=== PATIENT | female | born 1990 | race African-American/Black ===

== ENCOUNTER 2020-05-12 10:05 | Emergency (ER) | payer OTHER, SELFPAY ==
[2020-05-12 10:18] VITALS: BP 112/32; PULSE 72; RESP 18; TEMP 37.4; O2SAT 100; BMI 33.6
--- NOTE | 2020-05-12 10:19 | XR_ITS ---
EXAMINATION: XR ANKLE, RIGHT CLINICAL INFORMATION: Status post near fall. Twisting injury. Pain. COMPARISON: None TECHNIQUE: AP, lateral, and mortise views of the right ankle. FINDINGS: The bones and soft tissues are normal. No fracture. Alignment is anatomic. Joint spaces are maintained. No joint effusion. XR/XR ankle RT min 3V IMPRESSION: Unremarkable right ankle exam.
--- NOTE | 2020-05-12 11:12 | ED_ITS ---
HPI - Extremity Injury (Lower) General Chief Complaint: Extremity Injury, Lower Stated Complaint: foot pain Time Seen by Provider: 05/12/20 10:19 Source: patient Mode of arrival: ambulatory Limitations: no limitations History of Present Illness HPI Narrative: States getting out of her vehicle at work today just prior to arrival and misstepped and rolled or any ankle having right ankle pain/swelling since. Denies fall or any other injury. Again injury occurred today 05/12/2020 just prior to arrival. MD complaint: ankle injury Onset (ago): hour(s) Related Data Allergies Allergy/AdvReac Type Severity Reaction Status Date / Time No Known Allergies Allergy Verified 05/12/20 10:24 Review of Systems Review of Systems: Constitutional: No Weight loss, No Fever, No Chills, No Night Sweats, No Fatigue, No Malaise ENT/Mouth: No Hearing loss, No Ear Pain, No Nasal Congestion, No Sinus Pain, No Hoarseness, No sore throat, No Rhinorrhea, No Swallowing Difficulty Eyes: No Eye Pain, No Swelling, No Redness, No Foreign Body, No Discharge, No Vision Changes Cardiovascular: No Chest Pain, No SOB, No Dyspnea on Exertion, No Orthopnea, No Edema, No Palpitations Respiratory: No Cough, No Sputum, No Wheezing, No Smoke Exposure, No Dyspnea Musculoskeletal: No joint pain, No Myalgias, No Joint Swelling Skin: No Skin Lesions, No rash Neuro: No Weakness, No Numbness, No Paresthesias, No Loss of Consciousness, No Dizziness, No Headache Psych: No Social Issues Heme/Lymph: No Bruising, No Bleeding,No Lymphadenopathy Endocrine: No Polyuria, No Polydipsia, No Temperature Intolerance [facility] Past Medical History Medical History (Updated 05/12/20 @ 11:20 by Adonay Sifuentes NP) No known health problems Social History Social History Advance Directives: Yes Advance Directives Information Provided: No Advance Directives on File: No Physical Exam Vital Signs: Vital Signs: Last Vital Signs Temp 99.4 F 05/12/20 10:18 Pulse 72 05/12/20 10:18 Resp 18 05/12/20 10:18 BP 112/32 L 05/12/20 10:18 Pulse Ox 100 05/12/20 10:18 Body Mass Index 33.6 Reviewed Const: General: cooperative and healthy appearing; No acute distress or intoxicated appearing Nutritional Appearance: average body habitus Orientation/consciousness: patient oriented x3 HENMT: Head: Yes normal to inspection Ears: hearing grossly normal bilaterally Eyes: General: appearance normal, both eyes and all related structures V isual Conley: normal visual conley by confrontation Chest: Chest palpation & inspection: normal inspection of the chest Resp: Effort & Inspection: normal respiratory effort Cardio: Jugular venous distension: no JVD : General: Yes no CVA tenderness Back/Spine/Pelvis: Back: no CVA tenderness Skin: General skin exam: no rashes or lesions noted Neuro: General: patient oriented x3 Extrem: Other: Right lateral ankle slight swelling/tender palpation. No obvious ecchymosis/deformity. General: Yes normal to inspection Course Course Course Narrative: Of the right ankle without any fracture or misalignment or effusion. Given presentation consistent with strain type injury of the ankle. A strep/crutches provided. Given the injury occurred at work today follow-up pr ovided for Occupational Health. Patient verbalized understanding and stable for discharge. Off note all directions conducted with presents of recovery coordinator throughout the visit Discharge Plan Discharge Clinical Impression: Ankle sprain and strain Patient Disposition: Home, Self-Care Instructions: Ankle Sprain (ED) Additional Instructions: Use finger ankle today The x-ray did not show any fracture of the ankle Ice, elevate Ck wrap Crutches You can take [id number] Tylenol or ibuprofen for label instructions for pain and discomfort [facility] with [facility] instructed Return if any concerns or worsening symptoms Thank you Referrals: [facility] [Provider Group] - 2 days Stand Alone Forms: Work/School Release
== END 2020-05-12 12:15 | disposition home or self-care (01) ==
PROVIDERS: Emergency Provider Emergency Medicine Emergency Medical Services
DX: S93.401A Sprain of unspecified ligament of right ankle, initial encounter (principal); M25.571 Pain in right ankle and joints of right foot; X50.1XXA Overexertion from prolonged static or awkward postures, initial encounter; Y93.01 Activity, walking, marching and hiking; Y92.9 Unspecified place or not applicable; Y99.9 Unspecified external cause status
CPT/HCPCS: 73610; 99283

== ENCOUNTER 2020-05-13 15:49 | Emergency (ER) | payer OTHER, SELFPAY ==
[2020-05-13 17:29] VITALS: BP 116/52; PULSE 71; RESP 16; TEMP 37; O2SAT 100; BMI 74.2
--- NOTE | 2020-05-13 17:36 | ED.GENADULT ---
HPI - General Adult General Chief complaint: General Medical Stated complaint: KNEE PAIN Time Seen by Provider: 05/13/20 17:36 Source: patient Mode of arrival: ambulatory Limitations: language barrier (Recreational Counselor used) History of Present Illness HPI narrative: Patient states she sprained her ankle two days ago and was given a work note for 2 days. 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 She states she does not have a primary care doctor but was evaluated in this ED on May 12. Patient states she had a knee x-ray which was negative for fracture or dislocation or effusion. Related Data Allergies Allergy/AdvReac Type Severity Reaction Status Date / Time No Known Allergies Allergy Verified 05/12/20 10:24 Review of Systems Review of Systems: see HPI [facility] Past Medical History Medical History No known health problems Social History Social History Advance Directives: No Advance Directives Information Provided: Yes Physical Exam Vital Signs: Vital Signs: Last Vital Signs Temp 98.6 F 05/13/20 17:29 Pulse 71 05/13/20 17:29 Resp 16 05/13/20 17:29 BP 116/52 L 05/13/20 17:29 Pulse Ox 100 05/13/20 17:29 Body Mass Index 74.2 Const: General: cooperative, healthy appearing, comfortable and well developed Orientation/consciousness: patient oriented x3 Limitations: language barrier (Recreational Counselor present) HENMT: Head: Yes normal to inspection Eyes: General: appearance normal, both eyes and all related structures Neck: Neck: Yes normal visual inspection and Yes supple Skin: General skin exam: no rashes or lesions noted Neuro: General: patient oriented x3 Extrem: Other: Right ankle: Slight swelling, tenderness to palpation of medial and lateral malleolus, strength 4/5, normal sensation, no rashes or lesions noted. Medical Decision Making MDM Narrative Medical decision making narrative: Right ankle sprain, counseled patient on importance to get follow-up care at [facility], also to establish a primary care doctor as we cannot extend her out of work any further. Also gave ortho referral Discharge Plan Discharge Clinical Impression: Right ankle sprain Qualifiers: Encounter type: subsequent encounter Involved ligament of ankle: posterior talofibular ligament Qualified Code(s): S93.491D - Sprain of other ligament of right ankle, subsequent encounter Patient Disposition: Home, Self-Care Instructions: Ankle Sprain (ED) Referrals: Lisandra Lugo MD [Physician] - 2 days (if not better. OR, you may call [facility] at [phone] for follow up care for your work related injury.) Stand Alone Forms: Work/School Release Print Language: Ivorian
== END 2020-05-13 18:56 | disposition home or self-care (01) ==
PROVIDERS: Emergency Provider Emergency Medicine
DX: S93.491A Sprain of other ligament of right ankle, initial encounter (principal); M25.562 Pain in left knee; M25.561 Pain in right knee; X50.0XXA Overexertion from strenuous movement or load, initial encounter; X50.3XXA Overexertion from repetitive movements, initial encounter; X50.9XXA Other and unspecified overexertion or strenuous movements or postures, initial encounter; Y93.9 Activity, unspecified; Y92.9 Unspecified place or not applicable; Y99.0 Civilian activity done for income or pay
CPT/HCPCS: 99283

== ENCOUNTER 2020-06-02 08:51 | Outpatient (REF) | payer OTHER, SELFPAY ==
[2020-06-03 09:43] LABS: BV Int Neg Control Negative (Negative); BV Int Pos Control Positive (Positive)
[2020-06-28 10:06] LABS: CT PCR NOT DETECTED (Not Detect.); NG PCR NOT DETECTED (Not Detect.)
== END 2020-06-02 08:52 | disposition home or self-care (01) ==
LOC: HO.LAB 08:51
PROVIDERS: Visit Provider Advanced Practice Midwife
DX: Z01.419 Encounter for gynecological examination (general) (routine) without abnormal findings (principal); N89.8 Other specified noninflammatory disorders of vagina
CPT/HCPCS: 87480; 87491; 87510; 87591; 87660; 88142

== ENCOUNTER 2021-06-15 10:56 | Outpatient (REF) | payer OTHER, SELFPAY | END 2021-06-15 10:57 | disposition home or self-care (01) | LOC: HO.LAB 10:56 | PROVIDERS: Visit Provider Internal Medicine | DX: Z20.822 Contact with and (suspected) exposure to COVID-19 (principal) | CPT/HCPCS: C9803; U0003; U0005 ==

== ENCOUNTER 2021-06-26 12:33 | Outpatient (REF) | payer OTHER, SELFPAY ==
[2021-06-26 13:43] LABS: Binax Internal Control QC Valid; Binax Now Covid-19 Ag Negative (Negative)
== END 2021-06-26 12:34 | disposition home or self-care (01) ==
LOC: HO.LAB 12:33
PROVIDERS: Visit Provider Internal Medicine
DX: Z20.822 Contact with and (suspected) exposure to COVID-19 (principal)
CPT/HCPCS: 36415; C9803

== ENCOUNTER 2022-11-07 13:35 | Emergency (ER) | payer OTHER, SELFPAY ==
[2022-11-07] VITALS (7 sets, daily range): BP systolic 106–123; BP diastolic 60–74; PULSE 67–97; RESP 18–20; TEMP 36.7–37; O2SAT 96–100; BMI 38.3
--- NOTE | 2022-11-07 14:09 | ED.GENADULT ---
HPI - General Adult General Chief complaint: Dizziness Stated complaint: Dizziness/Head pressure Time Seen by Provider: 11/07/22 14:32 Source: patient and family Mode of arrival: ambulatory Limitations: language barrier History of Present Illness HPI narrative: Patient is a 32-year-old female with no past medical history presenting with one week of gradually worsening headache behind right ear. She states that the pain feels like a bruise but is actually improved with palpation/pressure. She also reports brief, intermittent episodes of dizziness worse with head movement and position changes. She denies photophobia. Denies feeling weak, lightheaded or near-syncopal. Denies any syncopal episodes. Patient denies headache is worst at onset or worst headache of life. Denies any falls, injury, or trauma. Denies any blurred vision or other changes in vision. She denies any fevers or other recent URI symptoms. Denies any changes in hearing. She denies any facial or jaw pain. She denies any chest pain or shortness of breath. She denies any abdominal pain, hematochezia or melena, nausea or vomiting. Has tried ibuprofen, Excedrin, Tylenol, and menthol rub with little relief. Onset (ago): day(s) Location: head Radiation: neck Severity: moderate Quality: aching and dull Pain Consistency: constant Relieving factors: medication Exacerbating factors: movement (dizziness, not headache) Associated symptoms: other (dizziness) Treatments prior to arrival: NSAID Related Data Previous Rx's Medication Instructions Recorded cyclobenzaprine 5 mg tablet 5 mg PO TID PRN muscle spasm #12 11/07/22 tabs lidocaine 5 % topical patch 1 patch topical DAILY #15 ea 11/07/22 Allergies Allergy/AdvReac Type Severity Reaction Status Date / Time No Known Allergies Allergy Verified 11/07/22 14:07 Review of Systems Review of Systems: As per HPI Yes all other systems are reviewed and are negative Constitutional: Constitutional: Reports no additional constitutional complaints Eyes: Eyes: Reports no additional eye complaints ENT: Reports system reviewed and no additional complaints, except as documented Cardiovascular: Cardiovascular: Reports no additional cardiovascular complaints Respiratory: Respiratory: Reports no additional respiratory complaints Gastrointestinal: Gastrointestinal: Reports no additional gastrointestinal complaints Genitourinary: Genitourinary: Reports no additional female genitourinary complaints Musculoskeletal: Musculoskeletal: Reports no additional musculoskeletal complaints Integumentary/Breasts: Skin/Breast: Reports system reviewed and no additional complaints, except as docu Neurologic: Reports system reviewed and no additional complaints, except as documented and Denies Sensory deficit (Neuro) Psychiatric: Psychiatric: Reports no additional psychiatric complaints Endocrine: Endocrine: Reports no additional endocrine complaints Hematologic/Lymphatic: Hematologic/Lymphatic: Reports no additional hematologic/lymphatic complaints Allergic/Immunologic: Allergic/Immunologic: Reports no additional allergic/immunologic complaints [facility] Past Medical History Medical History No known health problems Social History Social History Alcohol intake: never Smoked in Last 30 Days: No Use of substances other than those prescribed or required for medical reasons: No Advance Directives: No Advance Directives Information Provided: Yes Physical Exam ED Vital Signs: Vital Signs - 24 hr 11/07/22 14:07 11/07/22 14:35 11/07/22 14:38 Temperature 98.6 F 98.0 F 98.1 F Pulse Rate 83 67 93 Respiratory Rate 18 20 18 Blood Pressure 117/61 117/66 117/66 Pulse Oximetry 98 96 99 Oxygen Delivery Method Room Air Room Air Room Air 11/07/22 15:23 11/07/22 15:24 11/07/22 15:26 Temperature 98.3 F Pulse Rate 97 73 74 Respiratory Rate 18 Blood Pressure 106/65 110/60 119/67 Pulse Oximetry 100 Oxygen Delivery Method Room Air 11/07/22 15:27 Temperature Pulse Rate 77 Respiratory Rate Blood Pressure 123/74 Pulse Oximetry Oxygen Delivery Method BMI result Body Mass Index 38.3 Vital signs have been reviewed and appear to be correct. Blood pressure normal. Heart rate normal. Respiratory rate normal. Temperature normal. Oxygen saturation normal. Const General: cooperative, healthy appearing, no acute distress, alert and awake Nutritional Appearance: overweight Orientation/consciousness: patient oriented x3 Limitations: no limitations [facility] Head: Yes normal to inspection, Yes No palpable skull fracture present, Yes normocephalic, Yes atraumatic, No Jose's sign, No raccoon eyes, No scalp tenderness, No Temporal artery tenderness present and No periorbital ecchymosis Ears: hearing grossly normal bilaterally, external ears normal, TM's normal bilaterally, EAC's normal and mastoids normal bilaterally General nose exam: Normal external nose present and Normal nares present Face and sinus: Yes face symmetric Mouth: Normal oral and palatal mucosa present, tongue normal, oropharynx normal and moist mucous membranes Throat: Yes posterior oropharynx normal and Yes uvula midline Eyes General: appearance normal, both eyes and all related structures Visual Martines: normal visual martines by confrontation Alignment and Position: alignment normal and position normal Pupils: Equal, round and reactive pupils present EOM: EOMs intact bilaterally and No Nystagmus present Neck Neck: Yes normal visual inspection, Yes full ROM, Yes no lymphadenopathy, Yes no meningeal signs and Yes supple Chest Chest palpation & inspection: normal inspection of the chest Resp Effort & Inspection: normal respiratory effort and able to speak in complete sentences Auscultation: clear to auscultation bilaterally Cardio Rate: regular rate Rhythm: regular rhythm Heart sounds: S1 normal heart sound present and S2 normal heart sound present GI Inspection: Yes normal to inspection Palpation (GI): Soft to palpation and nontender Auscultation: normal bowel sounds General: Yes no CVA tenderness Back/Spine/Pelvis Back: no CVA tenderness Cervical Spine: cervical ROM normal, cervical muscular tenderness, cervical spasm, No Cervical spine tenderness and No step off deformity Thoracic/Lumbar Spine: No thoracic spinal tenderness and No lumbar spinal tenderness Skin General skin exam: no rashes or lesions noted Neuro General: patient oriented x3, gait normal, tone normal, moves all extremities, Normal light touch and pain sensation, no meningeal signs, no focal motor deficits, CN's II-XI intact bilaterally and Vandana Hallpike (positive on left) Cranial nerves: Yes Equal, round and reactive pupils present and No Nystagmus present Cognition (Neuro): normal cognition Motor exam (neuro): 5/5 motor strength present throughout and Pronator motor function not present Sensory Exam: No Sensory deficit (Neuro) Coordination: [id number] test normal, [id number] test normal and Romberg test negative Extrem General: Yes normal to inspection, Yes full ROM and Yes capillary refill normal Psych Appearance: grossly normal Mental Status: mental status grossly normal Speech and movement: Normal speech and movement present Affect: normal affect Attitude: cooperative Thought process: Normal thought process present Course Course Course Narrative: RME: 32 yold female presents to the ED for dizziness described as room spinning and headache for a couple of days. patient states no chest pain or shortness of breath. negative for any neuro deficits. basic labs ordered Medications Administered Discontinued Medications Generic Name Dose Route Start Last Admin Trade Name Clara PRN Reason Stop Dose Admin Cyclobenzaprine HCl 10 mg 11/07/22 15:15 11/07/22 15:29 Cyclobenzaprine Hcl 10 Mg Tablet PO 11/07/22 15:16 10 mg ONCE ONE Administration Ketorolac Tromethamine 30 mg 11/07/22 15:15 11/07/22 15:29 Ketorolac Tromethamine 30 Mg/Ml Vial IM 11/07/22 15:16 30 mg ONCE ONE Administration Medical Decision Making Medical Decision Making [facility] Narrative: Patient is a 32-year-old female with no past medical history presenting with one week of gradually worsening headache behind right ear as well as brief intermittent episodes of dizziness worse with head movement and position changes. On exam patient is awake, A+Ox3, neurological exam without focal deficits, PERRL and EOMs intact, pain improves with palpation of right occipital area, no mastoid tenderness, normal TMs, right paraspinal cervical spasms noted, no meningismus. Differential diagnosis for headache includes migraine versus tension type headache. No red flag findings. Presentation not consistent with ICH/SAH, acute [employer]MENT [employer] infection to include meningitis, encephalitis, or brain abscess, temporal arteritis/giant cell arteritis unlikely as is acute angle closure glaucoma. Presentation also not consistent with carotid artery dissection, pseudotumor cerebrii. Dizziness is consistent with BPPV given positive left Vandana-Hallpike. Less likely labrynthitis. No red flag features for central vertigo to include gradual onset, vertical/bidirectional or non fatigable nystagmus, focal neurological findings on exam. Presentation not consistent with vertebral artery insufficiency, cerebellar hemorrhage or infarction, intracranial mass or bleed, temporal lobe epilepsy, multiple sclerosis, trauma, complex migraine headache. Other Q, emergent cause of vertigo are unlikely at this time. Plan: Labs, pain management, Jalen maneuver, reassess 16:18 Patient reports good improvement in symptoms with medications, states pain has decreased from 08/10 to a 3/10. Performed Jalen maneuver at bedside and advised patient will discharge her home with instructions on how to perform on her own if symptoms persist. Mild thrombocythemia noted on labs, otherwise no concerning findings, instructed patient to follow up with PCP this week. Will prescribe short course of Flexeril and lidocaine patches. Differential Diagnosis Differential Diagnoses: The differential diagnosis associated with the presentation includes As above. Admission/Observation Consideration of admission/observation: Escalation of care including admission/observation considered Lab Data MDM Lab Attestation statement: I reviewed the patient's lab results. 11/07/22 14:20 11/07/22 14:20 Labs: Lab Results 11/07/22 11/07/22 11/07/22 Range/Units 14:20 14:20 14:57 WBC 11.9 H (4.8-10.8) X10*3/uL RBC 4.61 (4.20-5.50) X10*6/uL Hgb 12.1 (12.0-16.0) g/dl Hct 38.5 (37.0-47.0) % MCV 83.5 (80.0-98.0) fL MCH 26.2 L (27.0-33.0) pg MCHC 31.4 (31.0-35.0) g/dl RDW 14.4 (11.0-16.0) % Plt Count 525 H (160-400) X10*3/uL MPV 10.7 (9.4-12.3) fL Immature Gran % (Auto) 0.2 (0.0-0.4) % Neut % (Auto) 68.9 (45-73) % Lymph % (Auto) 22.8 (20-40) % [place] % (Auto) 6.7 (2-11) % Eos % (Auto) 1.1 (0-4) % Baso % (Auto) 0.3 (0-2) % Lymph # (Auto) 2.7 (1.2-4.9) X10*3/uL [place] # (Auto) 0.8 (0.1-1.2) X10*3/uL Eos # (Auto) 0.1 (0.0-0.4) X10*3/uL Baso # (Auto) 0.0 (0.0-0.2) X10*3/uL Abs Immat Gran (auto) 0.02 (0.00-0.03) X10*3/uL Absolute Neuts (auto) 8.2 (2.0-8.3) x10*3/uL Absolute Nucleated RBC 0.000 (0.0-0.012) X10*3/uL Nucleated RBC % (auto) 0.0 (0.0-0.2) /100WBC Sodium 141 (135-145) mmol/L Potassium 4.6 (3.3-5.1) mmol/L Chloride 106 (96-108) mmol/L Carbon Dioxide 26 (22-29) mmol/L Anion Gap 14 (12-20) BUN 8 L (9-16) mg/dL Creatinine 0.73 (0.5-1.4) mg/dL Estim Creat Clear Calc 119.9 Estimated GFR > 60 POC Glucose 137 H (60-115) mg/dL Random Glucose 112 (60-115) mg/dL Calcium 9.4 (8.4-10.2) mg/dL Total Bilirubin 0.4 (0.0-1.0) mg/dL AST 21 (5-31) U/L ALT 19 (0-31) U/L Alkaline Phosphatase 76 (39-117) U/L Total Protein 7.1 (6.5-8.0) g/dL Albumin 3.8 (3.5-5.0) g/dL Beta HCG, Quant < 2 mIU/mL Independent Historian Clinical information obtained from an independent historian. History obtained from or confirmed by: Other (family) External Record Review External record reviewed: Inpatient record, Office record and Outpatient record Prescription Management I considered prescription management with: Pain Medication Discharge Plan Discharge Clinical Impression: Benign paroxysmal positional vertigo, Acute tension headache Patient Disposition: Home, Self-Care Instructions: Tension Headache (ED), Benign Paroxysmal Positional Vertigo (ED) Additional Instructions: You have been evaluated in the emergency department today for headache and dizziness. Your evaluation did not show evidence of medical conditions requiring emergent intervention at this time, and your pain improved with medication in the ED. You can continue to perform the JALEN MANEUVER that we did in the emergency department. You can type this in to a google search to find instructions. You need instructions for the LEFT side. We recommend you take 600 mg ibuprofen every 6 hours or Tylenol 650 mg every 6 hours as needed for pain. If needed, you can alternate these medications so that you take 1 medication every 3 hours. For instance, at noon take ibuprofen, then at 3:00 p.m. take Tylenol, then at 6:00 p.m. take ibuprofen. Please follow-up with your primary care provider within 2 days. You are being prescribed a muscle relaxer called Flexeril which she can use up to 3 times a day as needed for muscle spasms. You are also being prescribed topical lidocaine patches which she can wear for up to 12 hours in a 24 hour period, do not apply heat directly over the patches. Return to the emergency department if you experience worsening or uncontrolled pain, chest pain, shortness of breath, loss of consciousness, vision changes, recurrent vomiting, difficulty with normal activities, abnormal behavior, difficulty walking, numbness, weakness, or any other concerning symptoms. Prescriptions: New cyclobenzaprine 5 mg tablet 5 mg PO TID PRN (Reason: muscle spasm) Qty: 12 0RF lidocaine 5 % adhesive patch,medicated 1 patch topical DAILY Qty: 15 0RF Rx Instructions: leave on most painful area for up to 12 hrs Interventions: ED Discharge Assessment Last Done: 11/07/22 16:30 Discharge Date/Time: 11/07/22 16:30 Print Language: Turkmen
[2022-11-07 14:23] LABS: MANUAL DIFF FLAG NO
--- NOTE | 2022-11-07 14:41 | PC.NURSE ---
Alert and oriented. Sttes x 1 week paxton that started gradually in the back of head and has worsened. States no otc mediations have helped and at times feels dizzy. Denies chest pain, sob, n/v. States area hurts when touched. JAGDISH.
[2022-11-07 14:50] LABS: Basophils Percent Auto 0.3 % (0-2); Eosinophils Absolute Auto 0.1 X10*3/uL (0.0-0.4); Eosinophils Percent Auto 1.1 % (0-4); Hematocrit 38.5 % (37.0-47.0); Hemoglobin 12.1 g/dl (12.0-16.0); Imm Gran Abs Auto 0.02 X10*3/uL (0.00-0.03); Imm Gran Pct Auto 0.2 % (0.0-0.4); Lymphocytes Absolute Auto 2.7 X10*3/uL (1.2-4.9); Lymphocytes Percent Auto 22.8 % (20-40); Mean Corpuscular HGB Conc 31.4 g/dl (31.0-35.0); Mean Corpuscular Hemoglobin 26.2 pg (27.0-33.0); Mean Corpuscular Volume 83.5 fL (80.0-98.0); Mean Platelet Volume 10.7 fL (9.4-12.3); Monocytes Absolute Auto 0.8 X10*3/uL (0.1-1.2); Monocytes Percent Auto 6.7 % (2-11); Neutrophils Absolute Auto 8.2 x10*3/uL (2.0-8.3); Neutrophils Percent Auto 68.9 % (45-73); Platelet Count 525 X10*3/uL (160-400); Red Blood Count 4.61 X10*6/uL (4.20-5.50); Red Cell Distribution Width 14.4 % (11.0-16.0); White Blood Count 11.9 X10*3/uL (4.8-10.8)
--- NOTE | 2022-11-07 14:59 | PC.NURSE ---
POC 137
[2022-11-07 15:01] LABS: Glucose, Whole Blood 137 mg/dL (60-115)
[2022-11-07] MEDS: Cyclobenzaprine HCl 10 MG TABLET PO (15:29)
[2022-11-07] MEDS: Ketorolac Tromethamine 30 MG/ML VIAL IM (15:29)
[2022-11-07 15:47] LABS: Alanine Aminotransferase 19 U/L (0-31); Albumin Level 3.8 g/dL (3.5-5.0); Alkaline Phosphatase 76 U/L (39-117); Anion Gap 14 (12-20); Aspartate Amino Transferase 21 U/L (5-31); Bilirubin Total 0.4 mg/dL (0.0-1.0); Blood Urea Nitrogen 8 mg/dL (9-16); Calcium 9.4 mg/dL (8.4-10.2); Carbon Dioxide 26 mmol/L (22-29); Chloride 106 mmol/L (96-108); Creatinine Clr Calc Pharmacy 119.9; Estimated Glomerular Filt Rate > 60; Glucose Random 112 mg/dL (60-115); HCG Quantitative < 2 mIU/mL; Potassium 4.6 mmol/L (3.3-5.1); Sodium 141 mmol/L (135-145); Total Protein 7.1 g/dL (6.5-8.0)
--- NOTE | 2022-11-07 15:57 | PC.NURSE ---
Patient reports pain has improved since admin of po and Im pain medication. Denies dizziness at this time.
--- NOTE | 2022-11-07 16:31 | PC.NURSE ---
Reports significant improvement in neck/ head pain. Reviewed discharged instruction to perform roseann pierre at home to help with vertigo
== END 2022-11-07 16:30 | disposition home or self-care (01) ==
PROVIDERS: Physician Assistant; Emergency Provider Emergency Medicine Emergency Medical Services; PCP Internal Medicine
DX: H81.13 Benign paroxysmal vertigo, bilateral (principal); G44.209 Tension-type headache, unspecified, not intractable; H92.01 Otalgia, right ear; Z79.899 Other long term (current) drug therapy
CPT/HCPCS: 36415; 80053; 82947; 84702; 85025; 96372; 99284; J1885